=== PATIENT | female | born 1955 | race Caucasian/White ===

== ENCOUNTER → 2016-12-11 | Outpatient (CLI) | payer OTHER | END | disposition home or self-care (01) | LOC: CVU 06:55 | PROVIDERS: ATTEND Family Medicine | DX: I73.9 Peripheral vascular disease, unspecified (principal) | CPT/HCPCS: 93922; 93926 ==

== ENCOUNTER 2017-01-07 11:27 | Day surgery (SDC) | payer OTHER ==
[~2017-01-07] VITALS: Ht 160 cm; Wt 97.5 kg
[~2017-01-07 11:27] MED LIST: ASPI-496 PO; ATOR20TA9 PO; CHOL500050 PO; FISH1CAP PO; LISI-167 PO; METF500T4 PO
[2017-01-07 11:50] VITALS: BP 126/76
[2017-01-07] MEDS: SODIUM CHLORIDE 0.9% 1,000 ML IV SCH ×2 (12:13→18:04)
[2017-01-07] MEDS ORDERED: LIDOCAINE 2%, 20ML ONE (12:15)
[2017-01-07] MEDS ORDERED: LIDOCAINE 1%, 2ML SQ PRN (12:30)
[2017-01-07] MEDS ORDERED: NALOXONE 1 MG/ML, 2ML ONE (13:47)
[2017-01-07] MEDS ORDERED: FLUMAZENIL 0.1 MG/1 ML, 5ML ONE (13:47)
[2017-01-07] MEDS ORDERED: NITROGLYCERIN 5 MG/ML, 10ML ONE (13:47)
[2017-01-07] MEDS ORDERED: FENTANYL PF 100 MCG/2ML ONE (13:47)
[2017-01-07] MEDS ORDERED: PROTAMINE SULFATE 10 MG/ML, 25ML ONE (13:47)
[2017-01-07] MEDS ORDERED: MIDAZOLAM 1 MG/ML, 5ML ONE (13:47)
[2017-01-07] MEDS ORDERED: HEPARIN 1,000 UNITS/ML, 10ML ONE (13:47)
[2017-01-07] MEDS ORDERED: VISIPAQUE 270 MG/ML, 150ML BOTTLE ONE (16:04)
[2017-01-07] MEDS ORDERED: SODIUM CHLORIDE 0.9% 1,000 ML IV SCH (16:05)
[2017-01-07] MEDS ORDERED: CLOPIDOGREL 75 MG TABLET ONE (16:28)
[2017-01-07] MEDS ORDERED: HYDROcodone/APAP 5/325 TABLET PO PRN (16:30)
[2017-01-07] MEDS ORDERED: CLOPIDOGREL 75 MG TABLET PO SCH (16:30)
[2017-01-07 18:17] VITALS: BP 100/52
== END 2017-01-07 20:25 | disposition home or self-care (01) ==
LOC: OUT 11:27 → 4NOR 17:35 → OUT 20:25
DX: I70.213 Atherosclerosis of native arteries of extremities with intermittent claudication, bilateral legs (principal); E11.9 Type 2 diabetes mellitus without complications; E78.2 Mixed hyperlipidemia; I10 Essential (primary) hypertension; E66.01 Morbid (severe) obesity due to excess calories; F17.200 Nicotine dependence, unspecified, uncomplicated; Z90.710 Acquired absence of both cervix and uterus; Z88.0 Allergy status to penicillin; Z91.040 Latex allergy status; Z79.82 Long term (current) use of aspirin
CPT/HCPCS: 37221; 37225; 75625; 75716; 99156; 99157; C1714; C1725; C1751; C1760; C1769; C1876; C1884; C1894; C2623; J1644; J2250; J2720; J3010; J3490; J7030; Q9966; 75630; J2310